=== PATIENT | male | born 1985 | race Two or more races ===

== ENCOUNTER 2020-08-22 01:31 | Emergency (ER) | payer MEDICAID ==
[~2020-08-22] VITALS: Ht 175.3 cm; Wt 90.7 kg
--- NOTE | 2020-08-22 01:42 | Emergency Room Report ---
History of Present Illness General Chief Complaint: Chest Pain Source: Patient Present Illness HPI Patient is a 34-year-old male presents for increased chest discomfort. Reports having onset of symptoms approximately 2 hours prior to arrival. States he was drinking a bottle of wine earlier in the evening and was at rest at the time of onset of symptoms. Had a prior history of high cholesterol as well as minor stroke without residual deficit. Patient states that he had previous femur surgery as well as appendectomy. Denies any prior cardiac disease and does not take any medication for his blood pressure. Reports being an occasional smoker of cigars.. Denies any recent trauma. No vomiting or diarrhea. No change in pain with position. Denies recent leg pain or swelling. Denies prior cardiac procedures. Denies any recent fever cough. 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 Patient History Past Medical History: see triage record Reviewed Nursing Documentation: PMH: Agreed; PSxH: Agreed Nursing Documentation-PMH History Of Psychiatric Problem: Yes Review of Systems All Other Systems: negative except mentioned in HPI Physical Exam Vital Signs Date Time Temp Pulse Resp B/P (MAP) Pulse Ox O2 Delivery O2 Flow Rate FiO2 08/22/20 01:31 98.1 106 20 149/96 (113) 98 Room Air Sp02 EP Interpretation: reviewed, normal General Appearance: normal inspection, well appearing, no apparent distress, alert, GCS 15, non-toxic Head: atraumatic ENT: normal ENT inspection, hearing grossly normal, normal voice Neck: normal inspection, full range of motion, supple, no bony tend Respiratory: normal inspection, lungs clear, normal breath sounds, no respiratory distress, no retraction, no wheezing Cardiovascular #1: no edema, tachycardia Gastrointestinal: normal inspection, normal bowel sounds, non tender, soft, no guarding, no hernia Genitourinary: no CVA tenderness Musculoskeletal: normal inspection, back normal, normal range of motion Neurologic: alert, motor strength/tone normal, 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 Differential diagnosis include was not limited to pneumonia, arrhythmia, reflux disease, cardiomyopathy, coronavirus infection among others. Because of complexity of patient's case laboratory tests and imaging studies were ordered. EKG interpreted by me showed sinus tachycardia without acute ST or T wave changes. Bedside ultrasound showed no evidence of wall motion abnormality or pericardial effusion. Patient was advised of laboratory findings. Troponin was negative. Repeat EKG was unchanged. Patient's chest discomfort does not appear to be cardiac in nature. Patient was advised to continue use of aspirin and follow-up with his primary care physician for recheck. He is advised to return if worse. Is advised to have outpatient coronavirus testing performed. This medical record is generated with [employer] voyage management system operator software. There may be some voyage management system operator discrepancies related to use of this software Labs Test 08/22/20 02:00 White Blood Count 11.9 K/UL (4.8-10.8) Red Blood Count 5.52 M/UL (4.70-6.10) Hemoglobin 16.3 G/DL (14.2-18.0) Hematocrit 46.6 % (42.0-52.0) Mean Corpuscular Volume 84 FL (80-99) Mean Corpuscular Hemoglobin 29.5 PG (27.0-31.0) Mean Corpuscular Hemoglobin Concent 34.9 G/DL (32.0-36.0) Red Cell Distribution Width 11.6 % (11.6-14.8) Platelet Count 315 K/UL (150-450) Mean Platelet Volume 6.1 FL (6.5-10.1) Neutrophils (%) (Auto) 68.8 % (45.0-75.0) Lymphocytes (%) (Auto) 25.7 % (20.0-45.0) Monocytes (%) (Auto) 4.8 % (1.0-10.0) Eosinophils (%) (Auto) 0.1 % (0.0-3.0) Basophils (%) (Auto) 0.6 % (0.0-2.0) Prothrombin Time 11.5 SEC (9.30-11.50) Prothromb Time International Ratio 1.1 (0.9-1.1) Activated Partial Thromboplast Time 25 SEC (23-33) D-Dimer < 0.19 mg/L FEU Sodium Level 142 MMOL/L (136-145) Potassium Level 3.6 MMOL/L (3.5-5.1) Chloride Level 106 MMOL/L (98-107) Carbon Dioxide Level 25 MMOL/L (21-32) Anion Gap 11 mmol/L (5-15) Blood Urea Nitrogen 14 mg/dL (7-18) Creatinine 1.0 MG/DL (0.55-1.30) Estimat Glomerular Filtration Rate > 60 mL/min (>60) Glucose Level 92 MG/DL (74-106) Calcium Level 9.6 MG/DL (8.5-10.1) Total Bilirubin 0.6 MG/DL (0.2-1.0) Aspartate Amino Transf (AST/SGOT) 51 U/L (15-37) Alanine Aminotransferase (ALT/SGPT) 112 U/L (12-78) Alkaline Phosphatase 59 U/L (46-116) Troponin I 0.001 ng/mL (0.000-0.056) C-Reactive Protein, Quantitative < 0.4 mg/dL (0.00-0.90) Pro-B-Type Natriuretic Peptide 55 pg/mL (0-125) Total Protein 8.1 G/DL (6.4-8.2) Albumin 4.5 G/DL (3.4-5.0) Globulin 3.6 g/dL Albumin/Globulin Ratio 1.2 (1.0-2.7) Lipase 125 U/L (73-393) EKG Diagnostic Results EKG Time: 01:42 Rate: tachycardiac - 113 Rhythm: NSR ST Segments: no acute changes ASA given to the pt in ED: No Rhythm Strip Diag. Results Rhythm Strip Time: 02:25 EP Interpretation: yes Rate: 100 Rhythm: NSR, no PVC's, no ectopy Last Vital Signs Date Time Temp Pulse Resp B/P (MAP) Pulse Ox O2 Delivery O2 Flow Rate FiO2 08/22/20 01:31 98.1 106 20 149/96 (113) 98 Room Air Status: improved Disposition: HOME, SELF-CARE Condition: Stable Scripts Famotidine* (Pepcid 20mg tablet*) 20 Mg Tablet 20 MG ORAL DAILY for Gerd, #30 TAB 0 Refills Prov: Justino Duran MD 08/22/20 Justino Duran MD Aug 22, 2020 01:42
[2020-08-22] MEDS: Thiamine HCl 100 MG in D5W 55 ML IVPB ONE (01:47)
--- NOTE | 2020-08-22 01:52 | NUR ---
ED Nurse Note: Pt brought in by ambulance, walks with a steady gait, axox4, vitals are stable on RA. States that 2 hours ago he was awoken by moderate sharp chest pain 01/10. He states that it does not radiate and that it does not change when palpated. He is speaking in full sentances, labs sent, iv placed, ekg done at bedside, Addendum: 08/22/20 at 0228 by JONG Brought in by RA 61.
[2020-08-22 02:10] VITALS: BP 145/92
[2020-08-22 02:27] LABS: BASOPHILS % (AUTO) 0.6 % (0.0-2.0); EOSINOPHILS % (AUTO) 0.1 % (0.0-3.0); HEMATOCRIT 46.6 % (42.0-52.0); HEMOGLOBIN 16.3 G/DL (14.2-18.0); LYMPHOCYTES % (AUTO) 25.7 % (20.0-45.0); MEAN CORPUSCULAR VOLUME 84 FL (80-99); MONOCYTES % (AUTO) 4.8 % (1.0-10.0); NEUTROPHILS % (AUTO) 68.8 % (45.0-75.0); PLATELET COUNT 315 K/UL (150-450); RED BLOOD COUNT 5.52 M/UL (4.70-6.10); RED CELL DISTRIBUTION WIDTH 11.6 % (11.6-14.8); WHITE BLOOD COUNT 11.9 K/UL (4.8-10.8)
[2020-08-22 02:31] LABS: ANION GAP 11 mmol/L (5-15); BLOOD UREA NITROGEN 14 mg/dL (7-18); CALCIUM 9.6 MG/DL (8.5-10.1); CARBON DIOXIDE 25 MMOL/L (21-32); CHLORIDE 106 MMOL/L (98-107); POTASSIUM 3.6 MMOL/L (3.5-5.1); SODIUM 142 MMOL/L (136-145)
[2020-08-22 02:39] LABS: INR 1.1 (0.9-1.1); PARTIAL THROMBOPLASTIN TIME 25 SEC (23-33)
[2020-08-22 02:42] LABS: ALANINE AMINOTRANSFERASE 112 U/L (12-78); ALBUMIN 4.5 G/DL (3.4-5.0); ALBUMIN/GLOBULIN RATIO 1.2 (1.0-2.7); ALKALINE PHOSPHATASE 59 U/L (46-116); ASPARTATE AMINO TRANSFERASE 51 U/L (15-37); BILIRUBIN,TOTAL 0.6 MG/DL (0.2-1.0)
[2020-08-22] MEDS: Ketorolac 30mg Inj IV ONE (03:00)
[2020-08-22] MEDS ORDERED: FAMOTIDINE20 MG ORAL (03:44)
[2020-08-22 04:05] VITALS: BP 132/88
--- NOTE | 2020-08-22 04:05 | NUR ---
ER DISCHARGE NOTE: Patient is cleared to be discharged per ERMD, pt is aox4, on room air, with stable vital signs. pt was given dc and prescription instructions, pt was able to verbalize understanding, pt id band and iv site removed without complications. pt is able to ambulate with steady gait. pt took all belongings. Pt left in a private car
== END 2020-08-22 04:02 | disposition home or self-care (01) ==
LOC: EDBD 01:31 → EMR 02:00
DX: R07.9 Chest pain, unspecified (principal); Z88.5 Allergy status to narcotic agent
CPT/HCPCS: 36415; 80053; 83690; 83880; 84484; 85025; 85379; 85610; 85730; 86140; 93005; 96361; 96365; 96367; 96375; J1885; J7030; S0028; Z7502; 99284